=== PATIENT | female | born 1955 | race Caucasian/White ===

== ENCOUNTER → 2018-03-28 | Outpatient (CLI) | payer OTHER ==
[2018-03-30 14:12] LABS: HPV 16 Positive (Negative); HPV 18 Negative (Negative); HPV OTHER HR TYPES Negative (Negative)
== END | disposition home or self-care (01) ==
LOC: LAB 17:44 → LAB SHORT 17:44
PROVIDERS: Nurse Practitioner Women's Health
DX: Z12.4 Encounter for screening for malignant neoplasm of cervix (principal); Z91.89 Other specified personal risk factors, not elsewhere classified
CPT/HCPCS: 87624; G0123

== ENCOUNTER → 2018-04-04 | Outpatient (CLI) | payer OTHER | END | disposition home or self-care (01) | LOC: PLD 08:21 → LAB SHORT 08:21 | DX: R87.810 Cervical high risk human papillomavirus (HPV) DNA test positive (principal) | CPT/HCPCS: 88305 ==

== ENCOUNTER → 2018-11-08 | Outpatient (CLI) | payer OTHER ==
[2018-11-08 19:39] LABS: Adenovirus F 40/41 Not Detected (NOT DETECT); Astrovirus Not Detected (NOT DETECT); Campylobacter Sp Not Detected (NOT DETECT); Cryptosporidium Not Detected (NOT DETECT); Cyclospora Cayetanensis Not Detected (NOT DETECT); E. Coli O157 Not Detected (NOT DETECT); Entamoeba Histolytica Not Detected (NOT DETECT); Enteroaggregative E. coli-EAEC Not Detected (NOT DETECT); Enteropathogenic E. coli-EPEC Not Detected (NOT DETECT); Enterotoxigenic E. coli-ETEC Not Detected (NOT DETECT); Giardia Lamblia Not Detected (NOT DETECT); Norovirus GI/GII Not Detected (NOT DETECT); Plesiomonas Shigelloides Not Detected (NOT DETECT); Rotavirus A Not Detected (NOT DETECT); Salmonella Sp Not Detected (NOT DETECT); Sapovirus Not Detected (NOT DETECT); Shiga Toxin-prod E. coli-STEC Not Detected (NOT DETECT); Shigella/Enteroin E. coli-EIEC Not Detected (NOT DETECT); Vibrio Cholerae Not Detected (NOT DETECT); Vibrio Sp Not Detected (NOT DETECT); Yersinia Enterocolitica Not Detected (NOT DETECT)
== END | disposition home or self-care (01) ==
LOC: LAB 15:52 → LAB SHORT 15:52 → LAB FUT 11-09 15:50
PROVIDERS: Internal Medicine
DX: R19.7 Diarrhea, unspecified (principal)
CPT/HCPCS: 0097U; 87177; 87209

== ENCOUNTER 2020-12-24 07:59 | Day surgery (SDC) | payer MEDICARE, BC ==
[~2020-12-24] VITALS: Ht 165.1 cm; Wt 63.7 kg
[2020-12-24] MEDS ORDERED: ALBU90OI INH (08:44)
[2020-12-24] MEDS ORDERED: BETA.05TO (08:45)
[2020-12-24] MEDS ORDERED: SYMBICORT 16010.2 GM (08:45)
[2020-12-24] MEDS ORDERED: RHINOCORT ALL8.43 M1 (08:46)
[2020-12-24] MEDS ORDERED: Celexa20 MG PO (08:46)
[2020-12-24] MEDS ORDERED: PSEU120ER PO (08:47)
[2020-12-24] MEDS ORDERED: ZOLP10 (08:47)
[2020-12-24] MEDS ORDERED: CLOB.05TO (08:47)
== END 2020-12-24 10:15 | disposition home or self-care (01) ==
LOC: ORSCSDS 07:59
PROVIDERS: Ophthalmology
PROC: 08RJ3JZ Replacement of Right Lens with Synthetic Substitute, Percutaneous Approach (ICD-10-PCS; principal; 2020-12-24 09:45)
DX: H25.11 Age-related nuclear cataract, right eye (principal); J45.909 Unspecified asthma, uncomplicated; E78.5 Hyperlipidemia, unspecified; F41.8 Other specified anxiety disorders; Z79.899 Other long term (current) drug therapy
CPT/HCPCS: J2001; J2250; J3010; J3301; J7040; V2632

== ENCOUNTER 2021-01-14 12:39 | Day surgery (SDC) | payer MEDICARE, BC ==
[~2021-01-14] VITALS: Ht 165.1 cm; Wt 62.6 kg
[~2021-01-14 12:39] MED LIST: ALBU90OI INH; BETA.05TO; CLOB.05TO; Celexa20 MG PO; PSEU120ER PO; RHINOCORT ALL8.43 M1; SYMBICORT 16010.2 GM; ZOLP10
--- NOTE | 2021-01-14 13:49 | NUR ---
01/14/21 1349 Laura Rodriguez TETRACAINE DROPS TO LEFT EYE AT 1336. PLEDGET TO LEFT EYE AT 1338.
== END 2021-01-14 15:00 | disposition home or self-care (01) ==
LOC: ORSCSDS 12:39
PROVIDERS: Ophthalmology
PROC: 08RK3JZ Replacement of Left Lens with Synthetic Substitute, Percutaneous Approach (ICD-10-PCS; principal; 2021-01-14 13:30)
DX: H25.12 Age-related nuclear cataract, left eye (principal); J45.909 Unspecified asthma, uncomplicated; Z79.899 Other long term (current) drug therapy
CPT/HCPCS: J2001; J2250; J3010; J3301; J7040; V2632